=== PATIENT | male | born 1990 | race Caucasian/White ===

== ENCOUNTER 2019-04-10 10:14 | Emergency (ER) | payer SELFPAY ==
[2019-04-10] MEDS: LIDOCAINE 1% (MDV) 20 ML INJ SC (11:30)
[2019-04-10] MEDS: IBUPROFEN 800 MG TAB PO (11:30)
== END 2019-04-10 12:09 | disposition home or self-care (01) ==
LOC: FTE 10:14
DX: S51.811A Laceration without foreign body of right forearm, initial encounter (principal); F17.210 Nicotine dependence, cigarettes, uncomplicated; W26.8XXA Contact with other sharp object(s), not elsewhere classified, initial encounter; Y92.89 Other specified places as the place of occurrence of the external cause
CPT/HCPCS: 12002; 99282-25